=== PATIENT | female | born 1960 | race African-American/Black ===

== ENCOUNTER 2018-02-25 08:48 | Outpatient (CLI) | payer OTHER ==
--- NOTE | 2018-02-28 13:26 | MMO ---
BILATERAL SCREENING MAMMOGRAM: Date: 02/25/18 COMPARISON: 11/08/12. HISTORY: Screening mammography. FINDINGS: This patient's mammogram was interpreted with the assistance of computer-aided detection. The breast parenchyma is heterogeneously dense, limiting mammographic sensitivity. Benign calcificati on is noted bilaterally. There is no dominant mass or architectural distortion. No concerning microca lcifications are noted. IMPRESSION: BIRADS 2: Benign Finding(s) Annual screening mammography recommended. POS: [facility]
== END 2018-02-25 08:49 | disposition home or self-care (01) ==
LOC: SCSMAMMO 08:48
PROVIDERS: ATTEND Family Medicine
DX: Z12.31 Encounter for screening mammogram for malignant neoplasm of breast (principal)
CPT/HCPCS: 77067

== ENCOUNTER 2019-05-26 09:05 | Outpatient (CLI) | payer OTHER ==
--- NOTE | 2019-05-26 12:21 | ULT ---
ABDOMEN ULTRASOUND: HISTORY: Epigastric pain and bloating. FINDINGS: The liver demonstrates increased echogenicity, consistent with fatty infiltration. No definite focal mass or intrahepatic ductal dilatation is seen. The patient is post cholecystectomy. The common duct measures 7 mm in diameter. The tail of the pancreas is obscured by bowel gas. The visualized portions of the pancreas, aorta and IVC are unremarkable. The spleen and kidneys appear normal. No free fluid is seen. IMPRESSION: 1. Fatty liver. 2. Status post cholecystectomy. POS: [facility]
== END 2019-05-26 09:06 | disposition home or self-care (01) ==
LOC: ULT 09:05
PROVIDERS: ATTEND Family Medicine
DX: K21.9 Gastro-esophageal reflux disease without esophagitis (principal); R10.13 Epigastric pain; R19.00 Intra-abdominal and pelvic swelling, mass and lump, unspecified site; K76.0 Fatty (change of) liver, not elsewhere classified; Z90.49 Acquired absence of other specified parts of digestive tract
CPT/HCPCS: 93975

== ENCOUNTER 2022-10-08 18:42 | Emergency (ER) | payer OTHER | END 2022-10-08 23:42 | disposition home or self-care (01) | LOC: ERS 18:42 | DX: M79.604 Pain in right leg (principal); I10 Essential (primary) hypertension; F17.210 Nicotine dependence, cigarettes, uncomplicated; Z79.899 Other long term (current) drug therapy ==